=== PATIENT | female | born 1935 | race Two or more races ===

== ENCOUNTER → 2017-08-21 | Emergency (ER) | payer OTHER ==
[~2017-08-21] VITALS: Ht 160 cm; Wt 68.0 kg
[~2017-08-21] MED LIST: CIPRO500 MG PO; MEDROLPACK PO; PARA LA PRESION; PEPCID40 MG PO; PLAVIX75 MG
== END | disposition home or self-care (01) ==
LOC: ER 10:57
DX: J06.9 Acute upper respiratory infection, unspecified (principal); J11.1 Influenza due to unidentified influenza virus with other respiratory manifestations

== ENCOUNTER 2019-04-17 17:00 | Emergency (ER) | payer OTHER ==
[~2019-04-17] VITALS: Ht 157.5 cm; Wt 67.1 kg
== END 2019-04-17 20:52 | disposition home or self-care (01) ==
LOC: ER 17:00
DX: J45.998 Other asthma (principal)

== ENCOUNTER 2020-03-02 12:04 | Emergency (ER) | payer OTHER ==
[~2020-03-02] VITALS: Ht 157.5 cm; Wt 70.3 kg
[2020-03-02] MEDS ORDERED: MONTELUKAST SODI4 M1 (12:26)
[2020-03-02] MEDS ORDERED: SIMVASTATIN5 MG (12:27)
[2020-03-02] MEDS ORDERED: PROTONIX40 MG (12:27)
[2020-03-02] MEDS ORDERED: IRBESARTAN-HCT1 EACH (12:27)
[2020-03-02] MEDS ORDERED: HYDRALAZINE HCL10 MG (12:28)
== END 2020-03-02 16:25 | disposition home or self-care (01) ==
LOC: ER 12:04
DX: K52.89 Other specified noninfective gastroenteritis and colitis (principal); K76.0 Fatty (change of) liver, not elsewhere classified; R10.13 Epigastric pain; Z03.818 Encounter for observation for suspected exposure to other biological agents ruled out

== ENCOUNTER 2020-11-15 20:50 | Emergency (ER) | payer OTHER ==
[~2020-11-15] VITALS: Ht 152.4 cm; Wt 68.0 kg
[~2020-11-15 20:50] MED LIST changes: +HYDRALAZINE HCL10 MG; +IRBESARTAN-HCT1 EACH; +MONTELUKAST SODI4 M1; +PROTONIX40 MG; +SIMVASTATIN5 MG
[2020-11-15] MEDS ORDERED: ATARAX10 MG PO (21:14)
[2020-11-15] MEDS ORDERED: FLONASE16 GM NS (21:15)
[2020-11-16] MEDS ORDERED: BACTRIM DS TAB1 EACH PO (01:34)
== END 2020-11-16 01:39 | disposition home or self-care (01) ==
LOC: ER 20:50
DX: N39.0 Urinary tract infection, site not specified (principal); R53.81 Other malaise; Z03.818 Encounter for observation for suspected exposure to other biological agents ruled out

== ENCOUNTER 2021-10-13 06:55 | Emergency (ER) | payer OTHER ==
[~2021-10-13] VITALS: Ht 157.5 cm; Wt 81.6 kg
[~2021-10-13 06:55] MED LIST changes: +ATARAX10 MG PO; +BACTRIM DS TAB1 EACH PO; +FLONASE16 GM NS
== END 2021-10-13 12:51 | disposition home or self-care (01) ==
LOC: ER 06:55
DX: B34.9 Viral infection, unspecified (principal); E86.0 Dehydration; Z20.822 Contact with and (suspected) exposure to COVID-19; I10 Essential (primary) hypertension; Z88.5 Allergy status to narcotic agent

== ENCOUNTER 2024-04-08 11:20 | Emergency (ER) | payer OTHER ==
[~2024-04-08] VITALS: Ht 157.5 cm; Wt 67.6 kg
[2024-04-08] MEDS ORDERED: 0.9 % SODIUM CHLORIDE 1,000 ML IV STA (12:18)
[2024-04-08] MEDS ORDERED: KETOROLAC TROMETHAMINE 60 MG VIAL IM STA (12:20)
[2024-04-08 13:35] LABS: HEMATOCRIT 36.2 % (36.0-45.00); HEMOGLOBIN 12.1 g/dL (12.0-15.00); MEAN CELL VOLUME 93.5 fL (80.00-100.00); MEAN CORPUSCULAR HEMOGLOBIN 31.2 pg (27.00-32.0); MEAN CORPUSCULAR HGB CONC 33.3 g/dl (32.0-36.0); PLATELET COUNT 225 K/uL (150-450); RED BLOOD COUNT 3.87 M/uL (4.00-6.00); RED CELL DISTRIBUTION WIDTH 13.4 % (11.5-14.5)
[2024-04-08 13:42] LABS: ALBUMIN 3.6 gm/dL (3.4-5.0); ALKALINE PHOSPHATASE 74 U/L (50-136); ALT/SGPT 21 U/L (12-78); ANION GAP 11 (10.0-20.0); AST/SGOT 13 U/L (15-37); BILIRUBIN,CONJUGATED < 0.10 mg/dL (0.0-0.2); BLOOD UREA NITROGEN 24 mg/dL (7-18); BUN CREA RATIO 21 (7.0-25.0); CALCIUM 10.5 mg/dL (8.5-10.1); CARBON DIOXIDE 30 mEq/L (21-32); CHLORIDE 103 mmol/L (98-107); CREATININE SERUM 1.13 mg/dL (0.55-1.02); GFR 45.34; GLUCOSE FASTING 160 mg/dL (65-100); OSMOLALITY SERUM 287 MOSM/KG (275-295); SODIUM 140 mmol/L (136-145); TOTAL PROTEIN 8.4 gm/dL (6.4-8.2)
[2024-04-08 15:10] LABS: URINE APPEARANCE Clear; URINE BILIRRUBIN Negative (NEGATIVE); URINE BLOOD Negative; URINE COLOR Yellow; URINE GLUCOSE Negative (NEGATIVE); URINE KETONE Negative (NEGATIVE); URINE LEUKOCYTE Moderate; URINE NITRATE Negative; URINE PROTEIN Negative (NEGATIVE); URINE UROBILINOGEN 0.2 E.U./dl
[2024-04-08 15:14] LABS: URINE BACTERIA 522.8 uL (0.0-1933); URINE EPITHELIAL CELLS 11.9 uL (0.0-38.8); URINE RBC 2.2 uL (0.0-20.8); URINE WBC 377.8 uL (0.0-23.2)
[2024-04-08 15:20] LABS: URINE CAST 0.15 uL (0.0-1.40)
[2024-04-08] MEDS ORDERED: CIPROFLOXACIN IN 5 % DEXTROSE 400 MG/200 ML PIGGYBAG IV STA (15:35)
[2024-04-08] MEDS ORDERED: METRONIDAZOLE/SODIUM CHLORIDE 500 MG/100 ML PIGGYBACK IV STA (15:36)
== END 2024-04-08 17:34 | disposition home or self-care (01) ==
LOC: ER 11:22
PROVIDERS: General Practice
DX: R10.32 Left lower quadrant pain (principal); Z88.6 Allergy status to analgesic agent; J45.909 Unspecified asthma, uncomplicated
CPT/HCPCS: 36415; 74177; 96365; 96366; 96372; 99284; J0744; J1885; J7030; Q9965

== ENCOUNTER 2024-05-16 09:35 | Emergency (ER) | payer OTHER ==
[~2024-05-16] VITALS: Ht 157.5 cm; Wt 67.1 kg
[2024-05-16] MEDS ORDERED: FAMOTIDINE/PF 20 MG/2 ML VIAL IV PUSH ONE (13:00)
[2024-05-16] MEDS ORDERED: LACTOBACILLUS ACIDOPHILUS 1 CAP CAP PO ONE (13:00)
[2024-05-16] MEDS ORDERED: MEPERIDINE HCL/PF 25 MG/ML VIAL IV ONE (13:00)
[2024-05-16 13:46] LABS: HEMATOCRIT 40.7 % (36.0-45.00); HEMOGLOBIN 13.7 g/dL (12.0-15.00); MEAN CELL VOLUME 93.7 fL (80.00-100.00); MEAN CORPUSCULAR HEMOGLOBIN 31.6 pg (27.00-32.0); MEAN CORPUSCULAR HGB CONC 33.8 g/dl (32.0-36.0); PLATELET COUNT 255 K/uL (150-450); RED BLOOD COUNT 4.34 M/uL (4.00-6.00); RED CELL DISTRIBUTION WIDTH 13.4 % (11.5-14.5)
[2024-05-16 14:15] LABS: CALCIUM 10.4 mg/dL (8.5-10.1); CREATININE SERUM 1.08 mg/dL (0.55-1.02); GFR 47.77; POTASSIUM 3.98 mEq/L (3.5-5.1)
[2024-05-16] MEDS ORDERED: INTESTINEX680 M1 PO (16:06)
[2024-05-16] MEDS ORDERED: CIPRO500 MG PO (16:06)
[2024-05-16] MEDS ORDERED: PEPCID AC20 MG PO (16:06)
== END 2024-05-16 16:25 | disposition home or self-care (01) ==
LOC: ER 09:37
PROVIDERS: General Practice
DX: K29.60 Other gastritis without bleeding (principal); K57.30 Diverticulosis of large intestine without perforation or abscess without bleeding; R10.9 Unspecified abdominal pain; I10 Essential (primary) hypertension; Z88.6 Allergy status to analgesic agent; Z88.5 Allergy status to narcotic agent
CPT/HCPCS: 36415; 74177; 93005; 96365; 99284; J3490 ×2; Q9965

== ENCOUNTER 2024-10-08 19:12 | Emergency (ER) | payer OTHER ==
[~2024-10-08] VITALS: Ht 160 cm; Wt 65.8 kg
[~2024-10-08 19:12] MED LIST changes: +ELIQUIS2.5 MG PO; +HYZAAR 100-12.1 EACH PO; +INTESTINEX680 M1 PO; +PEPCID AC20 MG PO; +PLAVIX75 MG PO; +SINGULAIR4 M1 PO
[2024-10-08 19:54] VITALS: BP 94/59; O2SAT 96
[2024-10-08] MEDS ORDERED: FAMOtidine 10 MG/ML (4ML VIAL) IV ONE (20:15)
[2024-10-08] MEDS ORDERED: KETOROLAC TROMETHAMINE 30 MG VIAL IV ONE (20:15)
[2024-10-08] MEDS ORDERED: KETOROLAC TROMETHAMINE 30 MG VIAL ONE (20:19)
[2024-10-08] MEDS ORDERED: FAMOTIDINE/PF 20 MG/2 ML VIAL ONE (20:20)
[2024-10-08 20:30] LABS: URINE APPEARANCE Turbid; URINE BILIRRUBIN Negative (NEGATIVE); URINE BLOOD Small; URINE COLOR Yellow; URINE GLUCOSE Negative (NEGATIVE); URINE KETONE Trace (NEGATIVE); URINE LEUKOCYTE Large; URINE NITRATE Negative; URINE PROTEIN Negative (NEGATIVE); URINE UROBILINOGEN 0.2 E.U./dl
[2024-10-08 20:30] LABS: HEMATOCRIT 34.6 % (36.0-45.00); HEMOGLOBIN 11.5 g/dL (12.0-15.00); MEAN CELL VOLUME 94.1 fL (80.00-100.00); MEAN CORPUSCULAR HEMOGLOBIN 31.4 pg (27.00-32.0); MEAN CORPUSCULAR HGB CONC 33.3 g/dl (32.0-36.0); PLATELET COUNT 212 K/uL (150-450); RED BLOOD COUNT 3.68 M/uL (4.00-6.00)
[2024-10-08 20:34] LABS: URINE BACTERIA 8358.6 uL (0.0-1933); URINE EPITHELIAL CELLS 23.7 uL (0.0-38.8); URINE WBC 4181.4 uL (0.0-23.2)
[2024-10-08 20:46] LABS: ALBUMIN 3.8 gm/dL (3.4-5.0); BILIRUBIN TOTAL 0.27 mg/dL (0.3-1.2); CALCIUM 10.6 mg/dL (8.5-10.1); CREATININE SERUM 1.47 mg/dL (0.55-1.02); GFR 33.47; GLOBULINA 4.1 G/DL (2.4-3.5); POTASSIUM 3.91 mEq/L (3.5-5.1); TOTAL PROTEIN 7.9 gm/dL (6.4-8.2)
[2024-10-08 21:01] LABS: INR 0.96; PARTIAL THROMBOPLASTIN TIME 26.4 SECONDS (22.0-34.0); PROTHROMBIN TIME 10.5 SECONDS (9.0-11.5)
[2024-10-08 21:03] LABS: URINE CAST 1.17 uL (0.0-1.40)
[2024-10-08] MEDS ORDERED: CEFTRIAXONE SODIUM 1,000 MG VIAL ONE (21:30)
[2024-10-08] MEDS ORDERED: CEFTRIAXONE SODIUM 1,000 MG VIAL IV ONE (21:30)
[2024-10-08] MEDS ORDERED: METRONIDAZOLE500 MG PO (22:48)
[2024-10-08] MEDS ORDERED: CIPRO500 MG PO (22:48)
[2024-10-08] MEDS ORDERED: PROBIOTIC1 EAC2 PO (22:48)
[2024-10-08] MEDS ORDERED: PEPCID AC20 MG PO (22:48)
[2024-10-08] MEDS ORDERED: DICY20TA PO (22:48)
== END 2024-10-08 22:52 | disposition home or self-care (01) ==
LOC: ER 19:13 → EMR PED 19:22 → ER 22:52
PROVIDERS: General Practice
DX: K57.30 Diverticulosis of large intestine without perforation or abscess without bleeding (principal); I10 Essential (primary) hypertension; Z88.8 Allergy status to other drugs, medicaments and biological substances